=== PATIENT | male | born 1990 | race African-American/Black ===

== ENCOUNTER 2017-09-10 09:21 | Emergency (ER) | payer MEDICAID, OTHER ==
[~2017-09-10] VITALS: Ht 185.4 cm; Wt 69.7 kg
[2017-09-10 09:23] VITALS: Ht 185.4 cm; Wt 69.7 kg
[2017-09-10] MEDS ORDERED: HYDROmorphONE 4 MG TAB PO ONE (10:30)
--- NOTE | 2017-09-10 10:38 | RADRPT ---
PROCEDURE: XR Shoulder. CLINICAL INDICATION: Right shoulder pain. Injury. TECHNIQUE: Three views of the right shoulder are available for review. COMPARISON: None available FINDINGS: There is minimally displaced, mildly angulated fracture of the distal left clavicle. There is approximately 15 degrees inferior angulation of the distal fracture fragment. The glenohumeral joint appears normal. The acromioclavicular joint is intact. The bony mineralization is normal. No radiopaque foreign body is identified. Visualize rib cage is unremarkable. No evidence of pneumothorax. IMPRESSION: 1. Mildly displaced and angulated of the distal left clavicle. RPTAT: QQ .Taqueria Moore MD, MD Date Time Electronically viewed and signed by .Taqueria Moore MD, on 09/10/2017 10:38 .M/
[2017-09-10] MEDS ORDERED: HYDR-902 PO (10:48)
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
== END 2017-09-10 11:03 | disposition home or self-care (01) ==
LOC: FTE 09:21
DX: S42.032A Displaced fracture of lateral end of left clavicle, initial encounter for closed fracture (principal); W18.39XA Other fall on same level, initial encounter; Y92.9 Unspecified place or not applicable
CPT/HCPCS: 73030; J1170; Z7502